=== PATIENT | female | born 1960 | race Caucasian/White ===

== ENCOUNTER 2016-12-06 09:48 | Day surgery (SDC) | payer OTHER ==
[2016-12-06] MEDS ORDERED: TETRACAINE 0.5% OPHTH 1 DOSE AFFEYE ONE ×2 (09:52→13:16)
[2016-12-06] MEDS ORDERED: VIGAMOX 0.5% OPHTH 1 DOSE AFFEYE ONE ×5 (09:53→13:38)
[2016-12-06] MEDS ORDERED: PROLENSA OPHTH 1 DOSE AFFEYE ONE (10:04)
[2016-12-06] MEDS ORDERED: ALPHAGAN-P OPHTH 1 DOSE AFFEYE ONE (10:05)
[2016-12-06] MEDS ORDERED: AK-DILATE 2.5% OPHTH 1 DOSE OP ONE ×4 (10:06→10:09)
[2016-12-06] MEDS ORDERED: CYCLOGYL 1% OPHTH 1 DOSE OP ONE ×4 (10:06→10:09)
[2016-12-06] MEDS ORDERED: MYDRIACIL OPHTH 1 DOSE AFFEYE ONE ×4 (10:06→10:09)
[2016-12-06] MEDS ORDERED: NS 500 ML IV 500 ML IV ONE (10:34)
[2016-12-06] MEDS ORDERED: BETADINE OPHTH SOLN 5% EACHEYE ONE (13:16)
[2016-12-06] MEDS ORDERED: BSS OPHTH (PLAIN) 500 ML with VANCOMYCIN HCL 500 MG VIAL 25 MG, ADRENALINE CHL INJ 1 MG IR ONE ×3 (13:24)
[2016-12-06] MEDS ORDERED: DUOVISC IO ONE (13:24)
[2016-12-06] MEDS ORDERED: ADRENALINE CHL INJ IJ ONE (13:24)
[2016-12-06] MEDS ORDERED: XYLOCAINE-MPF 1% IJ ONE (13:24)
[2016-12-06 15:37] VITALS: BP 158/72
== END 2016-12-06 14:05 | disposition home or self-care (01) ==
LOC: SURG1 09:48
PROVIDERS: ATTEND Ophthalmology
PROC: 08DK3ZZ Extraction of Left Lens, Percutaneous Approach (ICD-10-PCS; principal; 2016-12-06 18:00)
PROC: 08RK3JZ Replacement of Left Lens with Synthetic Substitute, Percutaneous Approach (ICD-10-PCS; principal; 2016-12-06 18:00)
DX: H25.12 Age-related nuclear cataract, left eye (principal); H25.042 Posterior subcapsular polar age-related cataract, left eye; H52.222 Regular astigmatism, left eye; H25.012 Cortical age-related cataract, left eye
CPT/HCPCS: A9270; A4217; J0170; J3370